=== PATIENT | female | born 1950 | race Caucasian/White ===

== ENCOUNTER 2017-11-05 19:11 | Inpatient (IN) | payer OTHER ==
[~2017-11-05] VITALS: Ht 170.2 cm; Wt 124.3 kg
[~2017-11-05 19:11] MED LIST: ASPIRIN EC81 M1 PO; ATORVASTATIN CA40 M1 PO; COLACE100 M1 PO; CYMBALTA60 M1 PO; FUROSEMIDE80 M1 PO; GABAPENTIN300 M2 PO; LASIX80 M1 PO; LISINOPRIL40 M1 PO; METFORMIN HCL500 M4 PO; MOBIC7.5 M1 PO; MODAFINIL200 MG PO; OXYCODONE HCL10 M2 PO; OXYCODONE-ACET1 EACH PO; OXYCONTIN (MONO40 MG PO; OXYCONTIN40 M1 PO; PERCOCET 325 MG1 TAB PO; PERCOCET 5-3251 EACH PO; RIVA15T PO; VITAMIN D250000 UNIT PO; XANAX0.5 MG PO; XARELTO15 M1 PO; XARELTO20 MG PO; ZOFRAN4 M2 PO
--- NOTE | 2017-11-05 19:59 | CT SCAN REPORT ---
EXAMINATION: CT HEAD WITHOUT CONTRAST CLINICAL INFORMATION: Question TIA. COMPARISON: Brain MRI 02/18/2017. TECHNIQUE: Contiguous axial imaging was performed from the skull base to vertex without intravenous administration of contrast. DLP: 635 mGy-cm. FINDINGS: There is no intracranial hemorrhage, large infarction, or mass lesion. There is no extra-axial collection. There is redemonstration of old left caudate lacunar infarct. There is mild scattered hypoattenuation in the bilateral cerebral white matter, which is nonspecific but likely reflects small vessel disease. There is no evidence of hydrocephalus. The visualized paranasal sinuses and mastoid air cells are clear. A right ocular prosthesis is noted. There is asymmetric prominence of the right superior ophthalmic vein but similar to prior. IMPRESSION: - No acute intracranial abnormality. 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 - Mild small vessel ischemic changes in the cerebral white matter.
[2017-11-05 20:26] LABS: ABSOLUTE BASOPHIL COUNT 0 /CUMM (0.0-0.2); ABSOLUTE EOSINOPHIL COUNT 0.1 /CUMM (0.0-0.7); ABSOLUTE GRANULOCYTE CT 6.2 /CUMM (1.4-6.5); ABSOLUTE LYMPH COUNT 0.9 /CUMM (1.2-3.4); ABSOLUTE MONOCYTE COUNT 0.5 /CUMM (0.10-0.60); BASOPHIL % 0.1 % (0.0-2.0); EOSINOPHIL % 1.3 % (0-5); HEMATOCRIT 35.6 % (37-47); MEAN CORPUSCULAR HGB CONC 33.2 G/DL (33.0-37.0); MEAN CORPUSCULAR VOLUME 78.3 FL (81.0-99.0); PLATELET COUNT 150 /CUMM (130-400); RBC DISTRIBUTION WIDTH 15.2 % (11.5-14.5); RED BLOOD CELL CT 4.54 /CUMM (4.20-5.40); WHITE BLOOD CELL COUNT 7.8 /CUMM (4.8-10.8)
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
--- NOTE | 2017-11-05 21:07 | RADIOLOGY REPORT ---
EXAMINATION: CHEST 1 VIEW CLINICAL INFORMATION: Shortness of breath. Hypoxia. COMPARISON: 11/18/2013. TECHNIQUE: An AP view of the chest is provided. FINDINGS: The cardiac silhouette is not enlarged. The mediastinal and hilar contours are unremarkable. There are neither pleural effusions nor pneumothoraces. There is right lower lobe opacification. The osseous structures are unremarkable. IMPRESSION: Right lower lobe opacification concerning for pneumonia. Recommendation is for a followup chest series to be obtained following treatment and/or resolution of symptoms to assure resolution of this appearance.
[2017-11-05] MEDS ORDERED: GABAPENTIN600 M1 PO (21:12)
[2017-11-05] MEDS ORDERED: AMLODIPINE BESYL5 M1 PO (21:12)
[2017-11-05] MEDS ORDERED: PROAIR HFA8.5 GM INH (21:13)
[2017-11-05] MEDS ORDERED: MELOXICAM15 M1 PO (21:13)
[2017-11-05] MEDS ORDERED: VITAMIN D250000 UNIT PO (21:13)
[2017-11-05] MEDS ORDERED: HAIR, SKIN & N1 EACH PO (21:16)
[2017-11-05] MEDS ORDERED: MULTIVITAMINS1 EAC9 PO (21:16)
[2017-11-05] MEDS ORDERED: DULCOLAX5 M1 PO (21:16)
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
--- NOTE | 2017-11-05 23:21 | CT SCAN REPORT ---
EXAMINATION: CT ANGIOGRAM OF THE CHEST WITH AND WITHOUT CONTRAST (CT PULMONARY ANGIOGRAM FOR PE) CLINICAL INFORMATION: Shortness of breath. Hypoxia. COMPARISON: Portable chest 11/05/2017. CT of chest 07/01/2008. TECHNIQUE: Prior to contrast administration, noncontrast localization images were obtained. Subsequently, multidetector volumetric imaging was performed from the thoracic inlet to below the diaphragms following the administration of 95 mL Optiray 320 intravenous contrast. No contrast reaction reported. Sagittal, coronal, and MIP oblique sagittal reformatted images were obtained on the CT workstation, uploaded to PACS, and reviewed. Total exam dose-length product 552.73 mGy-cm. FINDINGS: QUALITY OF STUDY/CONTRAST BOLUS: Satisfactory PULMONARY ARTERIES: There are pulmonary emboli. There are multiple emboli in the distal right main pulmonary artery that extend into the secondary and tertiary branches of the upper lobe, lower lobe and middle lobe. No emboli seen in the left lung. THORACIC AORTA: No aneurysm or dissection. LUNG: There is focal dense consolidation with air bronchograms involving the right lower lobe. This is a large infiltrate involving the majority of the right lower lobe. There is a small extension now into the inferior right middle lobe. PLEURA: No pleural effusion or pneumothorax. MEDIASTINUM: There is a enlarged lymph node at the humaira in the pretracheal retrovascular space and smaller lymph nodes in the same space and the AP window. There is an enlarged right paratracheal lymph node. These are likely reactive. No evidence of septal bowing or right heart strain. CHEST WALL/AXILLA: No axillary or internal mammary lymphadenopathy. OSSEOUS STRUCTURES: Multilevel degenerative spondylosis spine with endplate spurring of the vertebrae. UPPER ABDOMEN: Unremarkable. No reflux of contrast into the hepatic veins to suggest elevated right heart pressures. Status post cholecystectomy. IMPRESSION: 1. There are multiple emboli in the right lung. 2. Lumbar pneumonia of the right lower lobe. There is mediastinal lymphadenopathy which is likely reactive. This critical result was discussed with Dr. Simmons on 11/05/2017, 11:00 PM and it was ascertained that the content and urgency of the report was understood at the time of direct communication. VTE: positive
[2017-11-05 23:25] LABS: PT 13.9 SEC (9.4-12.5); PTT 31 SEC (25-37)
[2017-11-06 06:29] LABS: ABSOLUTE BASOPHIL COUNT 0.1 /CUMM (0.0-0.2); ABSOLUTE EOSINOPHIL COUNT 0.2 /CUMM (0.0-0.7); ABSOLUTE GRANULOCYTE CT 3.2 /CUMM (1.4-6.5); ABSOLUTE LYMPH COUNT 1.7 /CUMM (1.2-3.4); ABSOLUTE MONOCYTE COUNT 0.5 /CUMM (0.10-0.60); BASOPHIL % 0.9 % (0.0-2.0); EOSINOPHIL % 4.4 % (0-5); MEAN CORPUSCULAR HGB 26.1 PG (27.0-31.0); MEAN CORPUSCULAR VOLUME 79.1 FL (81.0-99.0); PLATELET COUNT 140 /CUMM (130-400); RBC DISTRIBUTION WIDTH 15.4 % (11.5-14.5); RED BLOOD CELL CT 4.16 /CUMM (4.20-5.40); WHITE BLOOD CELL COUNT 5.7 /CUMM (4.8-10.8)
[2017-11-06 06:39] LABS: PTT 62 SEC (25-37)
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
[2017-11-06 08:00] VITALS: BP 102/60
--- NOTE | 2017-11-06 12:58 | ULTRASOUND REPORT ---
EXAMINATION: BILATERAL LOWER EXTREMITY VENOUS ULTRASOUND CLINICAL INFORMATION: Rule out DVT in setting of PE. COMPARISON: CT pulmonary angiogram dated 11/05/2017. Left lower extremity venous Doppler ultrasound dated 12/19/2016 and 02/28/2015. Right lower extremity venous Doppler ultrasound dated 04/05/2015. TECHNIQUE: Doppler spectral analysis and color flow Doppler imaging was performed of the lower extremities. Compression and augmentation maneuvers were performed. FINDINGS: RIGHT LOWER EXTREMITY VENOUS DOPPLER ULTRASOUND: The right common femoral vein, greater saphenous vein takeoff, femoral vein, and popliteal vein are normally compressible with normal augmentation responses and phasic changes seen with Doppler imaging. The midcalf peroneal and posterior tibial veins are patent as well. No popliteal cyst is seen. LEFT LOWER EXTREMITY VENOUS DOPPLER ULTRASOUND: The right common femoral vein, greater saphenous vein takeoff, femoral vein and proximal popliteal vein are normally compressible with normal phasic changes and augmentation responses seen. In the mid and distal popliteal vein, abnormal eccentric echogenic thrombus is seen with noncompressibility of the popliteal vein and no flow seen in the thrombosed segment extending into the popliteal trunk. Findings are consistent with a partial nonocclusive thrombus. (Of note, on a 02/28/2015 ultrasound, more extensive left popliteal vein thrombus was seen extending into the lower femoral vein. This was found to have resolved on an intervening ultrasound dated 02/18/2017.) There is also noncompressibility and lack of vascular flow seen within the left gastrocnemius veins. The left peroneal and posterior tibial veins are patent. No popliteal cyst is seen. IMPRESSION: 1. Recurrent nonocclusive thrombus is seen within the left popliteal vein extending into the popliteal trunk. This is less extensive than on prior exam from 02/28/2015 and new when compared to 02/18/2017. 2. Occlusive thrombus is seen in the left gastrocnemius veins. 3. No evidence of deep venous thrombosis in the right lower extremity. This critical result was discussed with Dr. Summer Puentes 11/06/2017, 12:29 PM and it was ascertained that the content and urgency of this report was understood at the time of direct communication.
[2017-11-06 16:00] VITALS: BP 116/60
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
[2017-11-06 18:22] LABS: PTT 57 SEC (25-37)
--- NOTE | 2017-11-06 21:41 | ECHOCARDIOGRAM REPORT ---
HEIDY CORTES Age: 67 : 1950 Gender: F Exam Date: 11/06/2017 08:00 Exam Location: [facility] Ht (in): 68 Wt (lb): 260 BSA: 2.43 BP: 136 / 80 Ordering Physician: Paty Reyes MD Referring Physician: Paty Reyes MD Technologist: Andrey Rodriguez [facility] Room Number: 107-1 Indications: Other pulmonary embolism without acute cor pulmonale Rhythm: Sinus Technical Quality: poor FINDINGS Left Ventricle Normal left ventricular size with mild left ventricular hypertrophy. Normal systolic function with no obvious regional wall motion abnormalities. The ejection fraction is visually estimated at 60%. Right Ventricle The right ventricle is not measured. Mildly decreased contractility Right Atrium The right atrium is normal in size. Left Atrium The left atrium is normal in size. The interatrial septum is intact. Mitral Valve The mitral valve is normal in structure and function. There is no mitral regurgitation. Aortic Valve Mildly thickened and sclerotic aortic valve with mild stenosis. There is no aortic regurgitation. Tricuspid Valve The tricuspid valve is normal in structure and function. There is trace tricuspid regurgitation. Pulmonary artery systolic pressure is normal based on suboptimal measurements. Pulmonic Valve Structurally normal pulmonic valve. There is no pulmonic regurgitation. Pericardium Normal pericardium without effusion. No pleural effusion. Great Vessels Normal aortic root dimension. The aortic arch and great vessels are well seen and are normal. CONCLUSIONS 1. Normal EF of 60%. 2. Mild left ventricular hypertrophy. 3. Mildly decreaed RV function. 4. Trace tricuspid regurgitation. 5. Normal RV pressures based on suboptimal measurements. Ryan Horn M.D. (Electronically Signed) Final Date: 06 November 2017 21:37 MEASUREMENTS (Male / Female) Normal Values 2D ECHO LV Diastolic Diameter PLAX 5.0 cm 4.2 - 5.9 / 3.9 - 5.3 cm LV Systolic Diameter PLAX 3.6 cm 2.1 - 4.0 cm LV Fractional Shortening PLAX 28.0 % 25 - 46 % LV Ejection Fraction 2D Teich 54.0 % IVS Diastolic Thickness 1.5 cm LVPW Diastolic Thickness 1.3 cm LV Relative Wall Thickness 0.6 LVOT Diameter 2.1 cm Aortic Root Diameter 2.9 cm LA Systolic Diameter LX 3.9 cm 3.0 - 4.0 / 2.7 - 3.8 cm LV Diastolic Length 4C 7.8 cm 6.9 - 10.3 cm LV Diastolic Area 4C 23.6 cm LV Diastolic Volume MOD 4C 61.0 cm LV Ejection Fraction MOD 4C 67.2 % LV Stroke Volume MOD 4C 41.0 cm LV Cardiac Index MOD 4C 1416.1 cm/min LV Systolic Length 4C 6.0 cm LV Systolic Area 4C 12.1 cm LV Systolic Volume MOD 4C 20.0 cm LV Ejection Fraction MOD 2C 70.5 % LV Cardiac Index MOD 2C 2141.4 cm/min LV Diastolic Volume 4C AL 60.5 cm 85 - 139 / 69 - 109 cm LV Systolic Volume 4C AL 20.8 cm LV Ejection Fraction 4C AL 65.6 % LV Stroke Volume 4C AL 39.7 cm LV Cardiac Index 4C AL 1370.7 cm/min LV Ejection Fraction 2C AL 71.6 % LV Cardiac Index 2C AL 2209.0 cm/min Ascending Aorta Diameter 3.7 cm DOPPLER AV Peak Velocity 229.0 cm/s AV Peak Gradient 21.0 mmHg LVOT Peak Velocity 111.0 cm/s LVOT Peak Gradient 4.9 mmHg AV Area Cont Eq pk 1.7 cm Mitral E Point Velocity 86.9 cm/s Mitral A Point Velocity 71.6 cm/s Mitral E to A Ratio 1.2 MV Deceleration Time 299.0 ms TR Peak Velocity 255.0 cm/s TR Peak Gradient 26.0 mmHg PV Peak Velocity 126.0 cm/s PV Peak Gradient 6.4 mmHg LV E' Lateral Velocity 10.4 cm/s Mitral E to LV E' Lateral Ratio 8.4 LV E' Septal Velocity 8.1 cm/s Mitral E to LV E' Septal Ratio 10.7
[2017-11-07] VITALS: BP 110/60
[2017-11-07 00:41] LABS: PTT 71 SEC (25-37)
[2017-11-07 04:34] LABS: ABSOLUTE BASOPHIL COUNT 0 /CUMM (0.0-0.2); ABSOLUTE EOSINOPHIL COUNT 0.4 /CUMM (0.0-0.7); ABSOLUTE GRANULOCYTE CT 2.3 /CUMM (1.4-6.5); ABSOLUTE LYMPH COUNT 1.8 /CUMM (1.2-3.4); ABSOLUTE MONOCYTE COUNT 0.4 /CUMM (0.10-0.60); BASOPHIL % 0.6 % (0.0-2.0); EOSINOPHIL % 7.3 % (0-5); GRANULOCYTE % 47.4 % (42.2-75.2); HEMATOCRIT 31.8 % (37-47); MEAN CORPUSCULAR HGB 26.1 PG (27.0-31.0); MEAN CORPUSCULAR HGB CONC 33.1 G/DL (33.0-37.0); MEAN CORPUSCULAR VOLUME 78.9 FL (81.0-99.0); MEAN PLATELET VOLUME 10.6 FL (7.4-10.4); PLATELET COUNT 144 /CUMM (130-400); RBC DISTRIBUTION WIDTH 15.1 % (11.5-14.5); RED BLOOD CELL CT 4.03 /CUMM (4.20-5.40); WHITE BLOOD CELL COUNT 4.9 /CUMM (4.8-10.8)
[2017-11-07 08:00] VITALS: BP 108/60
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
[2017-11-07 14:09] VITALS: BP 124/70
[2017-11-07] MEDS ORDERED: FERROUS SULFAT325 M2 PO (17:40)
[2017-11-07 22:03] VITALS: BP 130/74
[2017-11-08 07:04] VITALS: BP 128/72
[2017-11-08 08:05] LABS: ABSOLUTE BASOPHIL COUNT 0 /CUMM (0.0-0.2); ABSOLUTE EOSINOPHIL COUNT 0.3 /CUMM (0.0-0.7); ABSOLUTE LYMPH COUNT 1.6 /CUMM (1.2-3.4); ABSOLUTE MONOCYTE COUNT 0.3 /CUMM (0.10-0.60); BASOPHIL % 0.8 % (0.0-2.0); EOSINOPHIL % 4.8 % (0-5); HEMATOCRIT 34.1 % (37-47); MEAN CORPUSCULAR HGB 26.2 PG (27.0-31.0); MEAN CORPUSCULAR HGB CONC 33.3 G/DL (33.0-37.0); MEAN CORPUSCULAR VOLUME 78.6 FL (81.0-99.0); MEAN PLATELET VOLUME 10.4 FL (7.4-10.4); PLATELET COUNT 182 /CUMM (130-400); RBC DISTRIBUTION WIDTH 15.3 % (11.5-14.5); RED BLOOD CELL CT 4.33 /CUMM (4.20-5.40); WHITE BLOOD CELL COUNT 5.3 /CUMM (4.8-10.8)
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
[2017-11-08 15:02] VITALS: BP 132/80
[2017-11-08 22:20] VITALS: BP 148/98
[2017-11-09 07:38] VITALS: BP 142/96
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
[2017-11-09 08:33] LABS: ABSOLUTE BASOPHIL COUNT 0 /CUMM (0.0-0.2); ABSOLUTE EOSINOPHIL COUNT 0.2 /CUMM (0.0-0.7); ABSOLUTE GRANULOCYTE CT 4.8 /CUMM (1.4-6.5); ABSOLUTE LYMPH COUNT 1.7 /CUMM (1.2-3.4); ABSOLUTE MONOCYTE COUNT 0.3 /CUMM (0.10-0.60); BASOPHIL % 0.4 % (0.0-2.0); EOSINOPHIL % 2.7 % (0-5); GRANULOCYTE % 68.1 % (42.2-75.2); HEMATOCRIT 35.7 % (37-47); MEAN CORPUSCULAR HGB 25.7 PG (27.0-31.0); MEAN CORPUSCULAR HGB CONC 32.8 G/DL (33.0-37.0); MEAN CORPUSCULAR VOLUME 78.4 FL (81.0-99.0); MEAN PLATELET VOLUME 10.4 FL (7.4-10.4); PLATELET COUNT 226 /CUMM (130-400); RBC DISTRIBUTION WIDTH 15.2 % (11.5-14.5); RED BLOOD CELL CT 4.55 /CUMM (4.20-5.40); WHITE BLOOD CELL COUNT 7.1 /CUMM (4.8-10.8)
--- NOTE | 2017-11-09 09:09 | RADIOLOGY REPORT ---
EXAMINATION: XR CERVICAL SPINE CLINICAL INFORMATION: Cervical pain COMPARISON: None TECHNIQUE: 4 views of cervical spine FINDINGS: The exam is limited as overlying soft tissue density limits evaluation of the spine below the level of C5-C6 disc space. Additionally the tip of the odontoid is not included in the [id number] of the exam on the odontoid projection. Additionally there are radiopaque densities projecting overlying portions of the spine on the lateral projection. These radiopaque densities appear to be outside of the patient There is spondylosis of the cervical spine with disc space narrowing endplate osteophytes at the C4-C5 and C5-C6 levels. There is facet arthrosis at the C3-C4 level. IMPRESSION: Limited examination as detailed above. If concern for additional cervical abnormalities consider follow-up imaging with CT
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
--- NOTE | 2017-11-09 11:52 | Patient Discharge Instructions ---
Discharge Instructions General Discharge Information You were seen/treated for: Multiple Pulmonary Emboli LLE DVT Watch for these problems: Please return to the ER in case of chest pain, worsening shortness of breath, worsening leg pain or swelling ot any syncopal episodes. Special Instructions: Please follow up with your PCP within a week after discharge. Please follow up with the cable maintainer within a week after discharge. Diet Continue normal diet: Yes Activity Full Activity/No Limits: Yes Acute Coronary Syndrome Inclusion Criteria At DC or during hospital stay patient has or had the following: ACS DIAGNOSIS No Discharge Core Measures Meds if any: Prescribed or Continued at Discharge Meds if any: NOT Prescribed or Continued at Discharge Congestive Heart Failure Inclusion Criteria At DC or during hospital stay patient has or had the following: CHF DIAGNOSIS No Discharge Core Measures Meds if any: Prescribed or Continued at Discharge Meds if any: NOT Prescribed or Continued at Discharge Cerebrovascular accident Inclusion Criteria At DC or during hospital stay patient has or had the following: CVA/TIA Diagnosis No Discharge Core Measures Meds if any: Prescribed or Continued at Discharge Meds if any: NOT Prescribed or Continued at Discharge Venous thromboembolism Inclusion Criteria VTE Diagnosis Yes VTE Type Pulmonary Embolism VTE Confirmed by (Test) CT CHEST ANGIOGRAM Discharge Core Measures - Per Current guidelines, there needs to be overlap - treatment for the first 5 days of Warfarin therapy. - If discharged on Warfarin prior to 5 days of - overlap therapy, the patient will need to be - assessed for post discharge needs including - *Post discharge parental anticoagulation - *Warfarin and/or parental anticoagulation education - *Follow up date to check INR post discharge At least 5 days overlap therapy as Inpatient No Meds if any: Prescribed or Continued at Discharge Note: Overlap Therapy is Warfarin and Anticoagulant Meds if any: NOT Prescribed or Continued at Discharge
[2017-11-09] MEDS ORDERED: LOVENOX100 MG/1 M SC (12:00)
[2017-11-09] MEDS ORDERED: BACLOFEN10 M1 PO (12:00)
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
[2017-11-09 14:40] VITALS: BP 150/86; BP 154/70
--- NOTE | 2017-11-09 15:06 | CT SCAN REPORT ---
EXAMINATION: CT CERVICAL SPINE WITHOUT CONTRAST CLINICAL INFORMATION: Cervical spine radiographs 09/09/2017. COMPARISON: Cervical spine radiographs 11/09/2017. TECHNIQUE: Maintenance Person images were obtained. CT acquisition of the cervical spine was performed without contrast. Data was reformatted into multiplanar images at the acquisition workstation. DLP: 350.42 mGy-cm FINDINGS: Alignment is normal. Vertebral body heights are preserved. There is no acute fracture. No abnormal prevertebral soft tissue swelling. There is of intervertebral disc height with associated sclerotic degenerative endplate changes and disc osteophyte spurring at the levels of C4-C5, C5-C6, and C6-C7. Mild degenerative arthrosis of the atlantodental joint. Grossly no evidence of canal compromise. There is mild uncovertebral joint spurring at multiple levels. No substantial bony neuroforaminal encroachment. There is a somewhat exophytic 2.5 cm nodule arising from the lower pole of the right thyroid lobe that projects into the upper mediastinum. Soft tissues of the neck are otherwise grossly unremarkable. Visualized lung apices are clear. IMPRESSION: Multilevel degenerative spondylosis of the cervical spine is most advanced at the levels of C4-C5, C5-C6, and C6-C7. No evidence of acute fracture and no canal compromise. Of note there is a 2.5 cm exophytic nodule arising from the lower pole of the right thyroid lobe that projects into the upper mediastinum.
[2017-11-09 22:16] VITALS: BP 164/88
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
[2017-11-10 08:03] VITALS: BP 158/98
--- NOTE | 2017-11-10 10:15 | CT SCAN REPORT ---
EXAMINATION: CT ABDOMEN AND PELVIS WITH CONTRAST CLINICAL INFORMATION: Abdominal pain. COMPARISON: 12/12/2016 TECHNIQUE: Multidetector volumetric imaging was performed of the abdomen and pelvis following IV administration of 95 mL of Optiray 320 intravenous contrast. Sagittal and coronal reformatted images were obtained on the technologist's workstation. DLP: 1001 mGy-cm FINDINGS: LUNG BASES: Multifocal confluent airspace opacities in the right lung base. This can be seen with pneumonia, sequela of aspiration. No effusion. LIVER, GALLBLADDER, AND BILIARY TREE: The liver is normal in size, shape, and attenuation. No focal hepatic lesion or biliary ductal dilatation is present. Status post cholecystectomy. No intrahepatic biliary duct dilatation. CBD is within normal limits. PANCREAS: Stable fatty changes of the pancreas. No acute inflammatory changes are seen. SPLEEN: Unremarkable. ADRENAL GLANDS: Unremarkable. KIDNEYS AND URETERS: There is mild fullness of the right renal pelvis, with a 4 mm calculus at the ureteropelvic junction. This may reflect migration of the previously noted lower pole calculus. Left extrarenal pelvis. No suspicious renal lesions are seen. Minimal bilateral perinephric stranding. Normal enhancement of bilateral kidneys. BLADDER: Unremarkable. GASTROINTESTINAL TRACT: There is gas and stool throughout the large colon. No evidence of colonic wall thickening or pericolonic inflammatory changes. The appendix appears unremarkable. Normal caliber of the small bowel loops. The stomach is nondistended, precluding evaluation. No free fluid. No free air. ABDOMINAL WALL: Small fat-containing umbilical hernia. Mild nonspecific stranding in the subcutaneous tissues of the right mid abdomen. LYMPH NODES: No pathologically enlarged lymph nodes are seen. VASCULAR: Normal caliber aorta. Portal vein is enhancing. PELVIC VISCERA: Anteverted uterus. Adnexa is within normal limits. OSSEOUS STRUCTURES: Multilevel degenerative changes in the spine. No acute osseous abnormality. IMPRESSION: 1. There is a 4 mm calculus in the right ureteropelvic junction, with mild fullness of the right renal pelvis. 2. Multifocal confluent airspace opacities in right lung base. This can be seen with pneumonia, aspiration in the appropriate clinical circumstance. 3. Status post cholecystectomy.
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
[2017-11-10 13:00] LABS: PT 13.1 SEC (9.4-12.5)
[2017-11-10 15:08] VITALS: BP 148/92
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
[2017-11-10 23:07] VITALS: BP 160/100
[2017-11-11 00:46] LABS: PTT LA SCREEN 37 sec (< OR = 40)
[2017-11-11 04:15] VITALS: BP 140/106
[2017-11-11 07:33] VITALS: BP 140/80
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
[2017-11-11 08:35] LABS: PT 13.5 SEC (9.4-12.5)
[2017-11-11 10:19] VITALS: BP 140/80
[2017-11-11] MEDS ORDERED: BACLOFEN10 M1 PO (10:42)
[2017-11-11] MEDS ORDERED: LOVENOX100 MG/1 M SC ×3 (10:42→10:58)
[2017-11-11] MEDS ORDERED: COUMADIN7.5 M1 PO (10:42)
[2017-11-11] MEDS ORDERED: FERROUS SULFAT325 M2 PO (10:42)
[2017-11-11] MEDS ORDERED: LOVENOX80 MG/0.1 SC ×2 (10:55→10:58)
[2017-11-11] MEDS ORDERED: COUMADIN5 M2 PO (11:41)
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
== END 2017-11-11 12:50 | DRG 175 ==
LOC: ERH 19:11 → ERHI 21:23 → 1NO 21:23 → CRI 21:23 → ENRESERV 23:41 → CRI 11-06 00:28 → 1NO 11-07 13:21 → ENTRNSPT 11-11 12:26 → 1NO 11-11 12:50 → EDTRNSPTSTS 11-11 12:57 → CMPTRNSPT 11-11 13:15
PROVIDERS: Hospitalist; Internal Medicine Infectious Disease; Physician Assistant Medical; Preventive Medicine Public Health & General Preventive Medicine; Student in an Organized Health Care Education/Training Program
DX: I26.99 Other pulmonary embolism without acute cor pulmonale (principal); J96.01 Acute respiratory failure with hypoxia; I82.4Z2 Acute embolism and thrombosis of unspecified deep veins of left distal lower extremity; D68.59 Other primary thrombophilia; Z68.41 Body mass index [BMI] 40.0-44.9, adult; I47.1 Supraventricular tachycardia; D68.62 Lupus anticoagulant syndrome; E11.42 Type 2 diabetes mellitus with diabetic polyneuropathy; Z79.84 Long term (current) use of oral hypoglycemic drugs; I87.2 Venous insufficiency (chronic) (peripheral); E66.9 Obesity, unspecified; I44.4 Left anterior fascicular block; I45.10 Unspecified right bundle-branch block; F32.9 Major depressive disorder, single episode, unspecified; F41.9 Anxiety disorder, unspecified; Z86.73 Personal history of transient ischemic attack (TIA), and cerebral infarction without residual deficits; Z79.01 Long term (current) use of anticoagulants; Z90.49 Acquired absence of other specified parts of digestive tract; R32 Unspecified urinary incontinence; M54.9 Dorsalgia, unspecified; Z79.51 Long term (current) use of inhaled steroids; Z90.01 Acquired absence of eye; Z91.81 History of falling; E78.5 Hyperlipidemia, unspecified
CPT/HCPCS: 1NP; 85613; 85730; CCU; ERO; 36415; 36592; 71045; 72050; 74177; 81001; 82436; 87040; 87070; 87449; 87450; 93005; 93010; 93306; 93970; 99291; J0696; J1644; J1650; J3490

== ENCOUNTER 2017-12-10 22:15 | Observation (INO) | payer OTHER ==
[~2017-12-10] VITALS: Ht 170.2 cm; Wt 114.3 kg
[~2017-12-10 22:15] MED LIST changes: +AMLODIPINE BESYL5 M1 PO; +BACLOFEN10 M1 PO; +COUMADIN5 M2 PO; +COUMADIN7.5 M1 PO; +DULCOLAX5 M1 PO; +FERROUS SULFAT325 M2 PO; +GABAPENTIN600 M1 PO; +HAIR, SKIN & N1 EACH PO; +LOVENOX100 MG/1 M SC; +LOVENOX80 MG/0.1 SC; +MELOXICAM15 M1 PO; +MULTIVITAMINS1 EAC9 PO; +PROAIR HFA8.5 GM INH
[2017-12-11 00:27] LABS: ABSOLUTE BASOPHIL COUNT 0.1 /CUMM (0.0-0.2); ABSOLUTE EOSINOPHIL COUNT 0.4 /CUMM (0.0-0.7); ABSOLUTE GRANULOCYTE CT 5.9 /CUMM (1.4-6.5); ABSOLUTE LYMPH COUNT 2.5 /CUMM (1.2-3.4); ABSOLUTE MONOCYTE COUNT 0.5 /CUMM (0.10-0.60); EOSINOPHIL % 3.8 % (0-5); GRANULOCYTE % 63.2 % (42.2-75.2); HEMATOCRIT 36.1 % (37-47); MEAN CORPUSCULAR HGB CONC 33.2 G/DL (33.0-37.0); MEAN CORPUSCULAR VOLUME 78.4 FL (81.0-99.0); MEAN PLATELET VOLUME 9.6 FL (7.4-10.4); PLATELET COUNT 210 /CUMM (130-400); RBC DISTRIBUTION WIDTH 15.7 % (11.5-14.5); RED BLOOD CELL CT 4.61 /CUMM (4.20-5.40); WHITE BLOOD CELL COUNT 9.3 /CUMM (4.8-10.8)
[2017-12-11 01:10] LABS: PT 33.1 SEC (9.4-12.5); PTT 42 SEC (25-37)
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
[2017-12-11] MEDS ORDERED: COUMADIN5 M2 PO (07:59)
[2017-12-11] MEDS ORDERED: COUMADIN10 M1 PO (08:00)
--- NOTE | 2017-12-11 11:12 | ULTRASOUND REPORT ---
EXAMINATION: US TRIPLEX LOWER EXTREMITY, RIGHT CLINICAL INFORMATION: 67-year-old female known to have left lower extremity deep venous thrombosis, seen on recent lower extremity DVT study done on 11/06/2017. Patient has developed right lower extremity swelling. COMPARISON: Bilateral lower extremity DVT study done on 11/06/2017. TECHNIQUE: Color-flow triplex imaging with spectral analysis and compression Doppler were performed on the lower extremity. FINDINGS: Respiratory variation, normal compression and augmented flow are noted throughout the lower extremity. The visualized common femoral vein, superficial femoral vein, profunda femoral vein, and popliteal vein show no evidence of deep venous thrombosis. The calf veins are not well-visualized (patient has significant edema), suboptimally evaluated. There is no Lockett's cyst. IMPRESSION: No evidence of deep venous thrombosis is seen at right lower extremity from the femoral through the popliteal veins. The calf veins are not well-visualized, suboptimally evaluated.
[2017-12-11 12:12] VITALS: BP 145/82
== END 2017-12-11 12:57 ==
LOC: ERH 22:15 → ERHI 12-11 01:42 → CMPBEDREQ 12-12 09:08 → ERHI 12-15 11:43
PROVIDERS: Emergency Medicine
DX: R60.9 Edema, unspecified (principal); G62.9 Polyneuropathy, unspecified; I10 Essential (primary) hypertension; J44.9 Chronic obstructive pulmonary disease, unspecified; R32 Unspecified urinary incontinence; F41.9 Anxiety disorder, unspecified; F32.9 Major depressive disorder, single episode, unspecified; Z86.718 Personal history of other venous thrombosis and embolism; Z79.01 Long term (current) use of anticoagulants; Z79.82 Long term (current) use of aspirin